=== PATIENT | female | born 1965 | race Two or more races ===

== ENCOUNTER → 2020-05-03 13:39 | Outpatient (BNVA) | payer MEDICARE, SELFPAY | PROVIDERS: PCP Internal Medicine; Visit Provider Physician Assistant | DX: Z76.89 Persons encountering health services in other specified circumstances (principal) ==

== ENCOUNTER → 2020-05-04 08:11 | Outpatient (BNVA) | payer MEDICARE, SELFPAY | PROVIDERS: PCP Internal Medicine; Visit Provider Surgery | DX: E66.01 Morbid (severe) obesity due to excess calories (principal); K28.9 Gastrojejunal ulcer, unspecified as acute or chronic, without hemorrhage or perforation; K21.9 Gastro-esophageal reflux disease without esophagitis; I10 Essential (primary) hypertension; G47.30 Sleep apnea, unspecified; R11.10 Vomiting, unspecified | CPT/HCPCS: Q3014 ==

== ENCOUNTER → 2020-05-26 08:16 | Outpatient (BNVA) | payer BC, SELFPAY | PROVIDERS: PCP Internal Medicine; Visit Provider Surgery ==

== ENCOUNTER 2020-05-27 06:26 | Outpatient (REF) | payer BC, SELFPAY ==
[2020-05-27 07:00] LABS: MANUAL DIFF FLAG NO
[2020-05-27 07:12] LABS: Basophils Percent Auto 0.3 % (0-2); Eosinophils Absolute Auto 0.1 X10*3/uL (0.0-0.4); Eosinophils Percent Auto 2.2 % (0-4); Hematocrit 42.7 % (37-47); Hemoglobin 13.6 g/dl (12.0-16.0); Imm Gran Abs Auto 0.02 X10*3/uL (0.00-0.03); Imm Gran Pct Auto 0.3 % (0.0-0.4); Lymphocytes Absolute Auto 1.8 X10*3/uL (1.2-4.9); Mean Corpuscular HGB Conc 31.9 g/dl (31.0-35.0); Mean Corpuscular Hemoglobin 26.3 pg (27.0-33.0); Mean Corpuscular Volume 82.4 fL (80-98); Mean Platelet Volume 9.1 fL (9.4-12.3); Monocytes Absolute Auto 0.5 X10*3/uL (0.1-1.2); Neutrophils Absolute Auto 3.4 X10*3/uL (2.0-8.3); Neutrophils Percent Auto 58.2 % (45-73); Platelet Count 245 X10*3/uL (160-400); Red Blood Count 5.18 X10*6/uL (4.20-5.50); Red Cell Distribution Width 13.2 % (11.0-16.0); White Blood Count 5.9 X10*3/uL (4.8-10.8)
[2020-05-27 07:47] LABS: Estimated Average Glucose 126 mg/dL; Hemoglobin A1C 152.4403 umol/L
[2020-05-27 08:11] LABS: Alanine Aminotransferase 23 U/L (0-31); Albumin Level 3.9 g/dL (3.5-5.0); Alkaline Phosphatase 131 U/L (39-117); Anion Gap 12 (12-20); Aspartate Amino Transferase 26 U/L (5-31); Bilirubin Total 0.6 mg/dL (0.0-1.0); Blood Urea Nitrogen 12 mg/dL (9-16); Calcium 8.5 mg/dL (8.4-10.2); Carbon Dioxide 27 mmol/L (22-29); Chloride 105 mmol/L (96-108); Cholesterol 172 mg/dL; Estimated Glomerular Filt Rate 58; Glucose Random 108 mg/dL (60-115); HDL Cholesterol 52 mg/dL; LDL Cholesterol Calculated 93 mg/dl; Potassium 4.4 mmol/L (3.3-5.1); Sodium 140 mmol/L (135-145); Total Protein 6.9 g/dL (6.5-8.0); Triglycerides 138 mg/dL
[2020-05-27 08:34] LABS: Ferritin 12 ng/mL (10-250); TSH reflex Free T4 2.18 uIU/mL (0.32-4.0); Vitamin D 25-OH Total 18.5 ng/mL (>30)
[2020-05-27 10:17] LABS: Folate 11.8 ng/mL (> or = 4.0); Vitamin B12 184 pg/mL (200-900)
[2020-05-28 10:27] LABS: Insulin Level Total 20.5 uIU/mL
[2020-05-28 13:14] LABS: Calcium (PTHI) 9.1 mg/dL (8.6-10.4); PTHI 95 pg/mL (14-64)
[2020-05-31 04:27] LABS: Zinc 74 mcg/dL (60-130)
[2020-06-01 19:47] LABS: Vitamin A 46 mcg/dL (38-98)
[2020-06-03 06:07] LABS: Vitamin B1 7 nmol/L (8-30)
== END 2020-05-27 06:27 | disposition home or self-care (01) ==
LOC: HO.LAB 06:26
PROVIDERS: PCP Internal Medicine; Visit Provider Surgery
DX: E66.01 Morbid (severe) obesity due to excess calories (principal); I10 Essential (primary) hypertension; K21.9 Gastro-esophageal reflux disease without esophagitis; G47.30 Sleep apnea, unspecified; K28.9 Gastrojejunal ulcer, unspecified as acute or chronic, without hemorrhage or perforation
CPT/HCPCS: 36415; 80053; 80061; 82306; 82607; 82728; 82746; 83036; 83525; 83970; 84425; 84443; 84590; 84630; 85025; 86140

== ENCOUNTER → 2020-06-01 07:52 | Outpatient (REF) | payer BC, SELFPAY ==
--- NOTE | ~2020-06-01 | XR_ITS ---
EXAMINATION: XR CHEST CLINICAL INFORMATION: Moderate severe obesity due to excessive calories. COMPARISON: None TECHNIQUE: 2 views of the chest were obtained. FINDINGS: No significant abnormality is noted involving the heart, lungs, mediastinum, bony thorax or soft tissues. XR/XR chest 2V IMPRESSION: Unremarkable chest examination.
--- NOTE | ~2020-06-01 | US_ITS ---
EXAMINATION: US COMPLETE ABDOMEN WITH LIVER ELASTOGRAPHY CLINICAL INFORMATION: Obesity COMPARISON: None. TECHNIQUE: Real-time imaging of the abdominal viscera. Noninvasive ultrasound liver fibrosis assessment is performed using Neno ElastPQ point quantification shear wave elastography (pSWE) with a 5 MHz transducer. Multiple elastography samples are obtained. FINDINGS: PANCREAS: Not well visualized due to bowel gas ABDOMINAL AORTA: The distal aorta is normal in caliber. The proximal and mid abdominal aorta is not well visualized due to bowel gas. INFERIOR VENA CAVA: Visualized portions are normal. LIVER: Liver echotexture is increased. No focal lesion or intrahepatic biliary duct dilatation. The liver is normal in size and contour. The right lobe measures 15 cm in length. The left lobe measures 9 cm in length. Portal flow is normal/hepatopedal. Shear wave liver elastography median stiffness is 1.3 m/s (reference: normal median stiffness is 1.3 m/s or less). IQR/median stiffness to assess sampling precision is 0.4 (reference: optimal IQR/median stiffness is 0.15 or less). GALLBLADDER: Normal. The gallbladder is physiologically distended without evidence of stones, sludge, polyps, wall thickening or pericholecystic fluid. COMMON BILE DUCT: Not well visualized due to bowel gas. The visualized common bile duct is normal in caliber measuring 0.4 cm in diameter. RIGHT KIDNEY: Normal. No hydronephrosis. No renal calculi or focal parenchymal lesions. The kidney measures 11.5 cm in maximum dimension. LEFT KIDNEY: Normal. No hydronephrosis. No renal calculi or focal parenchymal lesions. The kidney measures 11.1 cm in maximum dimension. SPLEEN: Normal. The spleen measures 10 cm in maximum dimension. FREE FLUID: None. US/US abdomen comp w elastography IMPRESSION: 1. Impression: Echogenic liver probably representing fatty infiltration. Limited visualization of the liver, common bile duct, pancreas and aorta. 2. Liver elastography: Metavir score F0 to F1 suggestive of normal to mild increased risk of developing liver fibrosis. Exam is limited due to sampling error.
--- NOTE | ~2020-06-01 | FL_ITS ---
EXAMINATION: XR GI SERIES CLINICAL INFORMATION: Eijyjs-we-dworff obesity due to excess calories. COMPARISON: None. TECHNIQUE: Routine upper GI air contrast study was performed in upright and lying position. FINDINGS: Following oral administration of thick barium and effervescent granules, there is normal propagation of bolus from the oral cavity through the pharynx and esophagus and into the stomach without obstruction, narrowing or stricture. 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 On placing patient supine, there are partial gastrectomy changes with Samantha-en-Y anastomosis. A blind-ending afferent loop is noted. The efferent loop is widely patent. Visualized proximal jejunal loops is unremarkable. There is mild gastroesophageal reflux without hiatal hernia. FLUOROSCOPY TIME: 2.6 minutes. DOSE AREA PRODUCT: 71.035 uGy-m2 (microgray-meter squared). FL/FL upper GI series IMPRESSION: Partial gastrectomy with Samantha-en-Y anastomosis. Widely patent anastomosis. The proximal jejunal loops are unremarkable. Nonobstructive small esophageal web is seen along the anterior cervical esophageal wall.
--- NOTE | 2020-06-01 09:21 | ECG_ITS ---
Test Reason : MORBID OBESITY Blood Pressure : / mmHG Vent. Rate : 063 BPM Atrial Rate : 063 BPM P-R Int : 158 ms QRS Dur : 072 ms QT Int : 402 ms P-R-T Axes : 015 001 010 degrees QTc Int : 411 ms Normal sinus rhythm with sinus arrhythmia Normal ECG No previous ECGs available Referred By: Sunny Garcia Electronically Signed By:NOEMY GOYAL
== END ==
LOC: HO.SL 07:52
PROVIDERS: PCP Internal Medicine; Visit Provider Surgery
DX: Z01.818 Encounter for other preprocedural examination (principal); E66.01 Morbid (severe) obesity due to excess calories; K21.9 Gastro-esophageal reflux disease without esophagitis; G47.19 Other hypersomnia
CPT/HCPCS: 71046; 74240; 76705; 76981; 93005; 95806

== ENCOUNTER → 2020-06-02 08:27 | Outpatient (BNVA) | payer BC, SELFPAY | PROVIDERS: PCP Internal Medicine; Visit Provider Dietitian, Registered ==

== ENCOUNTER 2020-06-03 08:05 | Day surgery (SDC) | payer BC, SELFPAY ==
[2020-05-28 09:42] VITALS: BMI 41.6
--- NOTE | 2020-06-02 10:28 | P.CONAN_ITS ---
Documented by User: Jacinta Jones 06/02/20 10:31 HPI - Anesthesia Eval Consult details Narrative: 55yo F for Upper Endoscopy s/p gastric bypass 1995 [facility] Active Problems Active Problems: All Active Problems (Updated 05/04/20 @ 13:45 by Sunny Garcia MD) Vomiting (Acute) Stress incontinence (Acute) Sleep apnea (Acute) Anastomotic ulcer (Acute) GERD (gastroesophageal reflux disease) (Acute) Hypertension (Acute) Morbid obesity (Acute) Past Medical History Medical History Anastomotic ulcer GERD (gastroesophageal reflux disease) Hypertension Morbid obesity Sleep apnea Stress incontinence Vomiting Family History Family History Mother No problems noted. Father Obesity Brother No problems noted. Brother No problems noted. Daughter No problems noted. Surgical History Surgical History History of bunionectomy History of mastopexy Hx of gastric bypass Hx of tonsillectomy S/P panniculectomy Social History Social History Alcohol intake: current Alcohol intake frequency: holidays/special occasions only Smoking Status: Former smoker Tobacco Type: Cigarette Advance Directives Information Provided: No Meds Allergies Allergy/AdvReac Type Severity Reaction Status Date / Time amoxicillin Allergy Severe Anaphylaxis Verified 05/04/20 12:52 Sulfa (Sulfonamide Allergy Severe Anaphylaxis Verified 05/04/20 12:52 Antibiotics) Home Medications Medication Instructions Recorded Confirmed Last Taken Type flu vacc [id number] 6mos up(PF) ml IM 05/04/20 05/04/20 Unknown History lisinopril 20 mg tablet 20 mg PO DAILY 05/04/20 06/03/20 06/03/20 History oxybutynin chloride 5 mg tablet 5 mg PO DAILY 05/04/20 05/28/20 Unknown History pantoprazole 40 mg tablet,delayed 40 mg PO DAILY 05/04/20 05/28/20 Unknown History release tizanidine 2 mg tablet 2 mg PO BID PRN 05/04/20 05/28/20 Unknown History Exam Exam Date and Time: June 02, 2020 1028 Height,Weight and Vital Signs: Height 5 ft 4 in Weight 109.996 kg Pertinent Lab Results Pertinent Lab Results: Laboratory Tests 05/27/20 05/27/20 06:50 06:50 WBC 5.9 Hgb 13.6 Hct 42.7 Plt Count 245 Sodium 140 Potassium 4.4 Chloride 105 Carbon Dioxide 27 BUN 12 Creatinine 1.00 Narrative Narrative: EKG 05/2019 Normal sinus rhythm with sinus arrhythmia Normal ECG No previous ECGs available Assessment and Plan Assessment Anesthesia Assessment: Chart Reviewed Documented by User: Tate Patrick 06/03/20 10:20 [facility] Past Medical History Medical History Anastomotic ulcer GERD (gastroesophageal reflux disease) Hypertension Morbid obesity Sleep apnea Stress incontinence Vomiting Family History Family History Mother No problems noted. Father Obesity Brother No problems noted. Brother No problems noted. Daughter No problems noted. Surgical History Surgical History History of bunionectomy History of mastopexy Hx of gastric bypass Hx of tonsillectomy S/P panniculectomy Social History Social History Alcohol intake: current Alcohol intake frequency: holidays/special occasions only Smoking Status: Former smoker Tobacco Type: Cigarette Advance Directives Information Provided: No Meds Allergies Allergy/AdvReac Type Severity Reaction Status Date / Time amoxicillin Allergy Severe Anaphylaxis Verified 05/04/20 12:52 Sulfa (Sulfonamide Allergy Severe Anaphylaxis Verified 05/04/20 12:52 Antibiotics) Home Medications Medication Instructions Recorded Confirmed Last Taken Type flu vacc [id number] 6mos up(PF) ml IM 05/04/20 05/04/20 Unknown History lisinopril 20 mg tablet 20 mg PO DAILY 05/04/20 06/03/20 06/03/20 History oxybutynin chloride 5 mg tablet 5 mg PO DAILY 05/04/20 05/28/20 Unknown History pantoprazole 40 mg tablet,delayed 40 mg PO DAILY 05/04/20 05/28/20 Unknown History release tizanidine 2 mg tablet 2 mg PO BID PRN 05/04/20 05/28/20 Unknown History Exam Airway Mallampati Class: III TM Dist: >3cm Neck ROM: Full Loose/Missing/Broken Teeth: No Heart: [id number] Lungs: cta b/l Assessment and Plan Assessment Anesthesia Assessment: Anesthesia Plan Discussed, PAT Visit and Chart Reviewed Final Anesthetic Review NPO: Yes ASA Class: II Final Preanesthetic Review: No Changes in Pt Med Stat, Meds/Allgs Chart Reviewed, Consent Obtained/Reviewed and Anes Risks/Benef Reviewed Patient Risk: Intermediate Procedure Risk: Low Assessment/Block/Sedation in SS: Assess/Block/Sedation-SS Anesthetic Plan Anesthetic Plan: MAC: and Agree w/ Assess. and Plan Disposition: Standard PACU
--- NOTE | 2020-06-03 07:48 | MHC.SHP ---
Pre-Procedural Eval Section A The patient is an INPATIENT: No The History & Physical has been completed within 30 days and I have reviewed it.: No Section B Chief Complaint: reflux Details of Present Illness: GERD and hx of anastomotic ulcer Relevant Family History (Specify if Yes): No Relevant Social History: None Present Medications: see Short Stay Collaborative assessment Medical History: No relevant PMH History of Previous Operations: Relevant previous surgery/procedure and date(s) (gastric bypass) Allergies: Allergies Allergy/AdvReac Type Severity Reaction Status Date / Time amoxicillin Allergy Severe Anaphylaxis Verified 05/04/20 12:52 Sulfa (Sulfonamide Allergy Severe Anaphylaxis Verified 05/04/20 12:52 Antibiotics) Review of Systems Sugical H&P ROS: Negative: Constitution, Cardiovascular, Respiratory, Neurological, Psychiatric, Hem-Onc, Allergic/Immunologic, Gastrointestinal, Genitourinary, Musculoskeletal, Integumentary, Endocrine and Eyes/Ears/Nose/Throat Exam Surgical H&P Exam: Normal: HEENT, Normal: Heart, Normal: Lungs, Normal: Extremities, Normal: Abdomen, Normal: Skin and Normal: Neurological Plan Diagnosis/Plan: Unchanged I have reviewed the history and physical and performed a pertinent physical examination on my patient. No changes have occurred unless specified.
[2020-06-03 08:42] VITALS: BP 114/70; PULSE 70; RESP 16; TEMP 36.7; O2SAT 95
[2020-06-03 09:09] LABS: COVID-19 Test Negative (Negative); IDNOW Serial# 9DD0AD1C
[2020-06-03] MEDS: Lactated Ringers 1,000 ML 100 ML IVCONT (09:11)
--- NOTE | 2020-06-03 10:29 | PM.OP ---
Brief Operative Note Date of Service: 06/03/20 Pre-op diagnosis: GERD and history anastomotic ulcer Post-op diagnosis: same Procedure: PROCEDURE DATE: 06/03/2020 PREOPERATIVE DIAGNOSIS: GERD, history of anastomotic ulcer, s/p gastric bypass POSTOPERATIVE DIAGNOSIS: Same as above. 1) Redundant gastric pouch, 2) gastric pouch stenosis versus hiatal hernia PROCEDURE: Pjllgbqa-daofyz-jfixhgzeyjz with biopsies Surgeon: Britton Garcia M.D.. Ph.D. Identification Printing Machine Setter: None Anesthesia: IV sedation Estimated blood loss: Minimal FINDINGS AND PROCEDURE: OPERATIVE INDICATIONS: The patient is a 55 year old female known to me who underwent a laparoscopic gastric bypass elsewhere. The patient had inadequate weight loss so far and has GERD. Based on this information I recommended an upper endoscopy to evaluate the patient's symptoms. Risks and complications of the surgery were discussed with the patient in advance particularly the possibility of perforation or bleeding that may require surgical intervention. The patient understood the risks and was in agreement with the plan. PROCEDURE: After informed consent was obtained by the patient, the patient was transferred to the Operating Room and was placed in the supine position. After successful induction of IV sedation, a mouth block was placed and the patient was placed in the left lateral decubitus position. An upper endoscopy was performed next, the oropharynx and esophagus appeared within the normal limits. The z-line was smooth. Two biopsies were obtained from the distal esophagus 2-3 cm proximal to the GE junction and two biopsies from the GE junction. The gastric pouch was entered and it was long (GEJ at 39cm from incisors and GJ anastomosis at 47cm from incisors). The gastric pouch appeared to have two chambers that were by a mid-narrow point. It is unclear if this represents a stricture or there is a moderate size diaphragmatic hernia. The proximal chamber has significant lateral redundancy. There was no gastritis and the gastrojejunostomy was patent. A biopsy was obtained from the gastric pouch. No significant bleeding was noted from any of the biopsy sites. There was no anastomotic ulcer. At that point the scope was advanced into the proximal small intestine (proximal Samantha limb) which appeared to be normal as well. The blind limb of the Samantha limb was not elongated. The Samantha limb and the pouch were decompressed and the scope was withdrawn from the patient's mouth. The patient was awaken and was transferred in stable condition to the Recovery Room for further care. I was present and performed all steps of the procedure. There were no residents to assist with this case. Britton Garcia M.D., Ph.D. Surgeon: Sunny Garcia MD Anesthesia: MAC Estimated blood loss (mL): 0 IV fluids (mL): 400 Urine output (mL): 0 (No [place] to record) Pathology: other (1) GE junction x2, distal esophagus x2, 3) gastric pouch x1) Condition: stable Disposition: PACU
[2020-06-03 11:08] VITALS: BP 93/62; PULSE 94; RESP 14; TEMP 36.1; O2SAT 95
[2020-06-03 11:22] VITALS: BP 105/59; PULSE 86; RESP 16; O2SAT 97
[2020-06-03 11:50] VITALS: BP 117/57; PULSE 78; RESP 16; TEMP 36.1; O2SAT 97
== END 2020-06-03 12:00 | disposition home or self-care (01) ==
PROVIDERS: PCP Internal Medicine; Visit Provider Surgery
PROC: 0DJ08ZZ Inspection of Upper Intestinal Tract, Via Natural or Artificial Opening Endoscopic (ICD-10-PCS; CPT 43235; principal; 2020-06-03 10:50)
DX: K21.9 Gastro-esophageal reflux disease without esophagitis (principal); K31.2 Hourglass stricture and stenosis of stomach; Z98.84 Bariatric surgery status; I10 Essential (primary) hypertension; E66.01 Morbid (severe) obesity due to excess calories; Z68.41 Body mass index [BMI] 40.0-44.9, adult; G47.30 Sleep apnea, unspecified; Z79.899 Other long term (current) drug therapy; Z88.1 Allergy status to other antibiotic agents; Z88.2 Allergy status to sulfonamides; Z87.891 Personal history of nicotine dependence
CPT/HCPCS: 43239; 36415; 87635; 88305; 88342; J2250

== ENCOUNTER 2020-06-15 08:56 | Outpatient (REF) | payer BC, SELFPAY ==
--- NOTE | ~2020-06-15 | CT_ITS ---
EXAMINATION: CT ABDOMEN AND PELVIS WITH CONTRAST CLINICAL INFORMATION: Morbid obesity. COMPARISON: Previous abdominal ultrasound and upper GI 06/01/2020 TECHNIQUE: Multidetector volumetric images were obtained from the superior aspect of the liver through the pubic symphysis following administration 85 mL of Omnipaque 350 intravenous contrast. Sagittal and coronal reformatted images were obtained on the technologist's workstation. Oral contrast: Yes This CT examination was performed using dose optimization techniques as appropriate, variously including the following: *Automated exposure control *Adjustment of mA and/or kV according to patient size (this includes techniques or standardized protocols for targeted exams where dose is matched to indication/reason for exam; i.e. extremities or head) *Use of iterative reconstruction technique DLP: 778 mGy-cm FINDINGS: LUNG BASES: The visualized lung bases are unremarkable. LIVER, GALLBLADDER, AND BILIARY TREE: The liver is slightly low in attenuation suggestive of mild fatty infiltration. The liver is otherwise normal. The gallbladder is normal. There is no biliary duct dilatation. PANCREAS: Unremarkable. SPLEEN: Unremarkable. ADRENAL GLANDS: Unremarkable. KIDNEYS AND URETERS: The kidneys are normal in size, shape, and attenuation. No hydronephrosis, hydroureter, or calculi seen. No perinephric stranding. BLADDER: Unremarkable. GASTROINTESTINAL TRACT: There are postsurgical changes to the stomach following gastric bypass. There is also a circular catheter adjacent to the stomach questionable for part of the gastric lap band. There is evidence of mild diverticulosis of the colon. Small and large bowel is otherwise unremarkable. The appendix is not identified. ABDOMINAL WALL: No significant hernia is appreciated. LYMPH NODES: Normal. VASCULAR: Unremarkable. PELVIC VISCERA: Unremarkable. OSSEOUS STRUCTURES: There is increased sclerosis, cortical thickening, increased trabeculation and small sclerotic densities of the left pelvis suggestive of Paget's disease. There are degenerative changes of the lumbar spine curvature to the right. CT/CT abdomen pelvis w con IMPRESSION: Postsurgical changes from gastric bypass. There is also a circular catheter seen around the stomach questionable for part of a gastric lap band. 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
[2020-06-15] MEDS: iohexoL 350 MG/ML 100 ML INFUS..BTL IV (11:36)
[2020-06-15] MEDS: Barium Sulfate Oral (Vanilla) 450 ML ORAL.SUSP 900 ML PO (11:37)
== END 2020-06-15 08:57 | disposition home or self-care (01) ==
LOC: HO.CT 08:56
PROVIDERS: PCP Internal Medicine; Visit Provider Surgery
DX: R10.11 Right upper quadrant pain (principal); R11.10 Vomiting, unspecified; K28.9 Gastrojejunal ulcer, unspecified as acute or chronic, without hemorrhage or perforation; K21.9 Gastro-esophageal reflux disease without esophagitis; I10 Essential (primary) hypertension; E66.01 Morbid (severe) obesity due to excess calories; G47.30 Sleep apnea, unspecified
CPT/HCPCS: 74177; Q9967

== ENCOUNTER → 2020-06-21 08:22 | Outpatient (BNVA) | payer BC, SELFPAY | PROVIDERS: PCP Internal Medicine; Visit Provider Surgery ==

== ENCOUNTER → 2020-06-30 08:59 | Outpatient (BNVA) | payer BC, SELFPAY | PROVIDERS: PCP Internal Medicine; Visit Provider Dietitian, Registered ==

== ENCOUNTER → 2020-07-12 07:32 | Outpatient (BNVA) | payer BC, SELFPAY | PROVIDERS: PCP Internal Medicine; Visit Provider Surgery ==

== ENCOUNTER → 2020-07-21 08:07 | Outpatient (BNVA) | payer BC, SELFPAY | PROVIDERS: PCP Internal Medicine; Visit Provider Dietitian, Registered ==

== ENCOUNTER → 2020-08-04 10:38 | Outpatient (BNVA) | payer BC, SELFPAY | PROVIDERS: PCP Internal Medicine; Visit Provider Surgery ==

== ENCOUNTER → 2020-08-12 15:37 | Outpatient (BNVA) | payer BC, SELFPAY | PROVIDERS: PCP Internal Medicine; Visit Provider Physician Assistant ==

== ENCOUNTER → 2020-09-10 15:04 | Outpatient (BNVA) | payer BC, SELFPAY | PROVIDERS: PCP Internal Medicine; Visit Provider Dietitian, Registered ==

== ENCOUNTER → 2020-09-17 15:50 | Outpatient (BNVA) | payer BC, SELFPAY | PROVIDERS: PCP Internal Medicine; Visit Provider Dietitian, Registered | DX: E66.9 Obesity, unspecified (principal); Z68.36 Body mass index [BMI] 36.0-36.9, adult | CPT/HCPCS: 97803 ==

== ENCOUNTER → 2020-10-22 15:16 | Outpatient (BNVA) | payer BC, SELFPAY | PROVIDERS: PCP Internal Medicine; Referring Provider Internal Medicine; Visit Provider Dietitian, Registered | DX: E66.9 Obesity, unspecified (principal); Z68.35 Body mass index [BMI] 35.0-35.9, adult | CPT/HCPCS: 97803 ==